=== PATIENT | female | born 1990 | race Caucasian/White ===

== ENCOUNTER 2017-12-04 14:30 | Emergency (ER) | payer OTHER ==
[~2017-12-04] VITALS: Ht 165.1 cm; Wt 65.8 kg
[~2017-12-04 14:30] MED LIST: MOTRIN 600 MG600 MG PO; PYRIDIUM200 MG PO; ULTRAM(MONOGRAP50 MG PO
[2017-12-04 14:43] VITALS: BP 123/78
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
== END 2017-12-04 17:06 ==
LOC: ERH 14:30
DX: T25.212A Burn of second degree of left ankle, initial encounter (principal); T25.211A Burn of second degree of right ankle, initial encounter; X11.8XXA Contact with other hot tap-water, initial encounter; Y92.9 Unspecified place or not applicable; Y93.9 Activity, unspecified